=== PATIENT | female | born 1970 | race Native Hawaiian/Other Pacific Islander ===

== ENCOUNTER 2022-02-18 10:34 | Outpatient (CLI) | payer BC | END 2022-02-18 20:07 | disposition home or self-care (01) | LOC: RESP 10:34 | PROVIDERS: ATTEND Orthopaedic Surgery | DX: G56.03 Carpal tunnel syndrome, bilateral upper limbs (principal); G56.23 Lesion of ulnar nerve, bilateral upper limbs | CPT/HCPCS: 95885; 95913 ==

== ENCOUNTER 2023-02-07 08:17 | Outpatient (CLI) | payer BC | END 2023-02-07 19:11 | disposition home or self-care (01) | LOC: US 08:17 → RESP 09:00 → US 19:11 | PROVIDERS: ATTEND Internal Medicine | DX: R60.0 Localized edema (principal); R42 Dizziness and giddiness ==